=== PATIENT | female | born 1960 | race Caucasian/White ===

== ENCOUNTER 2016-09-15 02:03 | Observation (INO) | payer BC ==
[~2016-09-15] VITALS: Ht 160 cm; Wt 60.0 kg
[~2016-09-15 02:03] MED LIST: ADV25050 INH; AZIT250T6 PO; ESTR1TAB23 PO; FLORANEX PO; LEVO137T26 PO; PANT40TA3 PO; PRED20TA PO; RTATR NEB; RTPRO5 NEB; SULF500T5 PO
[2016-09-15] MEDS ORDERED: ONDANSETRON 4 MG INJ IV STA (02:32)
[2016-09-15] MEDS ORDERED: HYDROmorphONE 1 MG/ML SYG IV STA (02:32)
[2016-09-15] MEDS ORDERED: SOD CHLORIDE 0.9% 1,000 ML IV STA (02:32)
[2016-09-15 02:55] LABS: ADD SCAN DIFF NO
[2016-09-15 02:58] LABS: ABNORMAL IP MESSAGE 1; BASOPHILS % 0.5 % (0.0-2.0); EOSINOPHILS # 0.2 10^3/ul (0.0-0.5); EOSINOPHILS % 2.8 % (0.0-7.0); HEMATOCRIT 38.8 % (37.0-47.0); HEMOGLOBIN 12.6 g/dl (12.0-16.0); LYMPHOCYTES # 1.9 10^3/ul (0.8-2.9); LYMPHOCYTES % 23.4 % (15.0-51.0); MEAN CORPUSCULAR HEMOGLOBIN 30.7 pg (29.0-33.0); MEAN CORPUSCULAR HGB CONC 32.5 g/dl (32.0-37.0); MEAN CORPUSCULAR VOLUME 94.4 fl (82.0-101.0); MEAN PLATELET VOLUME 13.4 fl (7.4-10.4); MONOCYTE # 0.9 10^3/ul (0.3-0.9); MONOCYTES % 10.8 % (0.0-11.0); NEUTROPHIL # 4.9 10^3/ul (1.6-7.5); NEUTROPHILS % 62.2 % (39.0-77.0); PLATELET COUNT 227 10^3/UL (140-415); RED BLOOD COUNT 4.11 10^6/ul (4.20-5.40); RED CELL DISTRIBUTION WIDTH 13.6 % (11.5-14.5); WHITE BLOOD COUNT 7.9 10^3/ul (4.8-10.8)
[2016-09-15] MEDS ORDERED: PROCHLORPERAZINE 10 MG INJ IV ONE (03:00)
[2016-09-15 03:16] LABS: ALBUMIN 4.6 g/dl (3.3-4.9); ALBUMIN/GLOBULIN RATIO 1.84; BILIRUBIN,INDIRECT 0.4 mg/dl (0-1.1); BILIRUBIN,TOTAL 0.4 mg/dl (0.2-1.3); CALCIUM 8.9 mg/dl (8.4-10.2); CREATININE 0.88 mg/dl (0.44-1.00); POTASSIUM 3.3 mmol/L (3.5-5.1); TOTAL PROTEIN 7.1 g/dl (6.1-8.1)
[2016-09-15 03:53] LABS: URINE BLOOD (Dip) POC Trace-intact (NEGATIVE)
[2016-09-15 04:21] LABS: ADD UMIC YES; UR BILIRUBIN (Dip) NEGATIVE (NEGATIVE); UR BLOOD (Dip) NEGATIVE (NEGATIVE); UR CLARITY CLEAR (CLEAR); UR COLOR LT. YELLOW (YELLOW); UR GLUCOSE (Dip) NEGATIVE (NEGATIVE); UR KETONES (Dip) TRACE (NEGATIVE); UR LEUKOCYTE ESTERASE (Dip) TRACE (NEGATIVE); UR NITRITE (Dip) NEGATIVE (NEGATIVE); UR TOTAL PROTEIN (Dip) NEGATIVE (NEGATIVE); UR UROBILINOGEN (Dip) 0.2 E.U./dL (0.1-1.0)
[2016-09-15 04:42] LABS: UR BACTERIA MANY; UR SQUAMOUS EPITHELIAL CELL FEW; URINE RBCS 0-2 /HPF (0)
--- NOTE | 2016-09-15 05:32 | ERA ---
ER Documentation Chief Complaint Date/Time DATE: 09/15/16 TIME: 05:31 Chief Complaint N/V/D since Wednesday with blood in stool, Hx of colitis HPI This 48-year-old female nausea vomiting diarrhea since Wednesday of blood in her stool. Patient has history of colitis. 2 episodes of vomiting ablated 5 episodes of diarrhea but just blood streaks in them. No fevers no chills. No other current complaints with abdominal pain is colicky nature no exacerbating or relieving factors mild nonlocalizing mild intensity. ROS All systems reviewed and are negative except as per history of present illness. Medications Home Meds Active Scripts Azithromycin* (Azithromycin*) 250 Mg Tablet, 500 MG PO ONCE, #1 TAB Prov:ESDRAS PAL 05/25/15 Azithromycin* (Azithromycin*) 250 Mg Tablet, 250 MG PO DAILY, #4 TAB Prov:ESDRAS PAL 05/25/15 Salmeterol Xinaf/Fluticasone* (Advair*) 1 Inh Inha, 1 INH INH BID for 30 Days, 3 Refills Prov:ESDARS PAL 05/25/15 Prednisone (Prednisone) 20 Mg Tab, 40 MG PO DAILY for 14 Days, TAB Prov:ESDRAS PAL 05/25/15 Lactobacillus Acidoph/Bulgaricus* (Floranex*) 1 Tab Chew, 1 TAB PO BID for 30 Days, TAB Prov:ESDRAS PAL 05/25/15 Albuterol Sulfate* (Proventil* Neb) 2.5 Mg/0.5 Ml Nebu, 2.5 MG NEB Q8 for 30 Days Prov:ESDRAS PAL 05/25/15 Ipratropium Bryant* (Atrovent*) 0.5 Mg/2.5 Ml Nebu, 0.5 MG NEB Q8 for 30 Days Prov:ESDRAS PAL 05/25/15 Reported Medications Sulfasalazine* (Sulfazine*) 500 Mg Tablet, 1500 MG PO DAILY, TAB 05/24/15 Levothyroxine Sodium* (Levoxyl*) 137 Mcg Tablet, 137.5 MCG PO BEFORE BREAKFAST, #30 TAB 05/24/15 Pantoprazole* (Protonix*) 40 Mg Tablet.dr, 40 MG PO DAILY, TAB 10/10/14 Estradiol* (Estrace*) 1 Mg Tablet, 1 MG PO DAILY, TAB 02/15/14 Allergies Allergies: Coded Allergies: Penicillins (Verified Allergy, Severe, VOMITING, DIFFICULTY BREATHING, ) morphine (Verified Allergy, Mild, ITCHING, RASHES, 05/24/15) PMhx/Soc History of Surgery: Yes (thyroid surgery,hysterrectomy x20yrs ago; cholecystectomy) Anesthesia Reaction: No Hx Neurological Disorder: No Hx Respiratory Disorders: Yes (pneumonia) Hx Cardiac Disorders: Yes (high cholesterol) Hx Psychiatric Problems: Yes (depression) Hx Miscellaneous Medical Probl: Yes (fibromyalgia, colitis, chester) Hx Alcohol Use: Yes (28 yrs sober) Hx Substance Use: No Hx Tobacco Use: Yes (1 pack per day x 40 yrs) Smoking Status: Current every day smoker Physical Exam Vitals Vital Signs Date Time Temp Pulse Resp B/P Pulse Ox O2 Delivery O2 Flow Rate FiO2 09/15/16 04:00 78 18 147/62 97 09/15/16 03:10 78 18 131/44 97 Room Air 09/15/16 02:08 98.0 86 16 153/83 99 Physical Exam Const: [] Head: Atraumatic Eyes: Normal Conjunctiva ENT: Normal External Ears, Nose and Mouth. Neck: Full range of motion..~ No meningismus. Resp: Clear to auscultation bilaterally Cardio: Regular rate and rhythm, no murmurs Abd: Soft, non tender, non distended. Normal bowel sounds Skin: No petechiae or rashes Back: No midline or flank tenderness Ext: No cyanosis, or edema Neur: Awake and alert Psych: Normal Mood and Affect Result Diagram: 09/15/16 0235 09/15/16 0235 Results 24 hrs Laboratory Tests Test 09/15/16 02:35 09/15/16 03:45 09/15/16 03:55 White Blood Count 7.910^3/ul Red Blood Count 4.1110^6/ul Hemoglobin 12.6g/dl Hematocrit 38.8% Mean Corpuscular Volume 94.4fl Mean Corpuscular Hemoglobin 30.7pg Mean Corpuscular Hemoglobin Concent 32.5g/dl Red Cell Distribution Width 13.6% Platelet Count 77651^3/UL Mean Platelet Volume 13.4fl Neutrophils % 62.2% Lymphocytes % 23.4% Monocytes % 10.8% Eosinophils % 2.8% Basophils % 0.5% Nucleated Red Blood Cells % 0.0/100WBC Neutrophils # 4.910^3/ul Lymphocytes # 1.910^3/ul Monocytes # 0.910^3/ul Eosinophils # 0.210^3/ul Basophils # 0.010^3/ul Nucleated Red Blood Cells # 0.010^3/ul Sodium Level 143mmol/L Potassium Level 3.3mmol/L Chloride Level 109mmol/L Carbon Dioxide Level 25mmol/L Anion Gap 12 Blood Urea Nitrogen 5mg/dl Creatinine 0.88mg/dl Glucose Level 92mg/dl Calcium Level 8.9mg/dl Total Bilirubin 0.4mg/dl Direct Bilirubin 0.00mg/dl Indirect Bilirubin 0.4mg/dl Aspartate Amino Transf (AST/SGOT) 28IU/L Alanine Aminotransferase (ALT/SGPT) 35IU/L Alkaline Phosphatase 80IU/L Total Protein 7.1g/dl Albumin 4.6g/dl Globulin 2.50g/dl Albumin/Globulin Ratio 1.84 Lipase 63U/L Urine Color LT. YELLOW Urine Clarity CLEAR Urine pH 6.0 Urine Specific [place] <=1.005 Urine Ketones TRACE Urine Nitrite NEGATIVE Urine Bilirubin NEGATIVE Urine Urobilinogen 0.2 E.U./dL Urine Leukocyte Esterase TRACE Urine Microscopic RBC 0-2/HPF Urine Microscopic WBC 2-5/HPF Urine Squamous Epithelial Cells FEW Urine Bacteria MANY Urine Hemoglobin NEGATIVE Urine Glucose NEGATIVE% Urine Total Protein NEGATIVE Bedside Urine pH (LAB) 6.0 Bedside Urine Protein (LAB) Negative Bedside Urine Glucose (UA) Negative Bedside Urine Ketones (LAB) 1+ Bedside Urine Blood Trace-intact Bedside Urine Nitrite (LAB) Negative Bedside Urine Leukocyte Esterase (L Negative Current Medications Medications (Trade) Dose Ordered Sig/Madi Route PRN Reason Start Time Stop Time Status Last Admin Dose Admin Sodium Chloride (NS) 1,000 ml @ 1,000 mls/hr Q1H STAT IV 09/15/16 02:32 09/15/16 03:31 DC 09/15/16 02:45 Hydromorphone HCl (Dilaudid) 1 mg ONCE STAT IV 09/15/16 02:32 09/15/16 02:34 DC 09/15/16 02:45 Ondansetron HCl (Zofran Inj) 4 mg ONCE STAT IV 09/15/16 02:32 09/15/16 02:34 DC Prochlorperazine (Compazine Inj) 10 mg ONCE ONCE IV 09/15/16 03:00 09/15/16 03:01 DC 09/15/16 03:04 Procedures/MDM Medical decision-making: This very pleasant 48-year-old female as well as to be acute colitis flare. Patient will be admitted to the [facility] physician guest relation officer. Departure Diagnosis: Primary Impression: Abdominal pain Qualified Code: R10.84 - Generalized abdominal pain Additional Impression: Colitis MARIA ELENA FAM Sep 15, 2016 05:32
[2016-09-15] MEDS ORDERED: ACETAMINOPHEN 325 MG TAB PO PRN ×2 (06:30→08:00)
[2016-09-15] MEDS ORDERED: ONDANSETRON 4 MG INJ IV PRN ×2 (06:30→08:00)
[2016-09-15] MEDS ORDERED: predniSONE 20 MG TAB PO SCH (08:00)
[2016-09-15] MEDS ORDERED: HYDROmorphONE 1 MG/ML SYG IV PRN (08:00)
[2016-09-15] MEDS ORDERED: ALBUTEROL/IPRATROPIUM (NEB) 3 ML AMP HHN SCH (08:00)
[2016-09-15] MEDS ORDERED: ALBUTEROL 0.083% (NEB) 2.5 MG/3 ML AMP HHN PRN (08:00)
[2016-09-15 08:05] VITALS: PULSE 72
[2016-09-15 08:21] VITALS: BP 136/73; RESP 20
[2016-09-15 08:55] VITALS: Ht 160 cm; Wt 60.0 kg
[2016-09-15] MEDS ORDERED: PANTOPRAZOLE (EC) 40 MG TAB PO SCH (09:00)
[2016-09-15] MEDS ORDERED: SALMETEROL/FLUTICASONE 250/50 INHA INH SCH (09:00)
[2016-09-15] MEDS ORDERED: LEVOTHYROXINE 137 MCG TAB PO SCH (09:00)
[2016-09-15] MEDS ORDERED: SULFASALAZINE 500 MG TAB PO SCH (09:00)
[2016-09-15] MEDS ORDERED: POTASSIUM CHLORIDE 250 ML IVPB ONE (09:00)
[2016-09-15] MEDS ORDERED: SOD CHLORIDE 0.9% 1,000 ML IV SCH (09:00)
[2016-09-15] MEDS ORDERED: NICOTINE (21 MG/24 HR) PATCH TRANSDERM SCH (12:30)
[2016-09-15] MEDS ORDERED: METR500T PO (14:10)
[2016-09-15] MEDS ORDERED: CIPR500T4 PO (14:10)
--- NOTE | 2016-09-15 18:21 | HP ---
DATE OF ADMISSION: 09/15/2016 Of note, the patient left against medical advice before being seen by anybody from the internal medi cine team. CHIEF COMPLAINT ON ADMISSION: Abdominal pain. HISTORY OF PRESENT ILLNESS: This history is obtained from ER physician's documentation. The patien britt is a 48-year-old female with history of ulcerative colitis who presented with nausea, vomiting and diarrhea for the past 3 days. She even reported blood in her stools. She had 2 episodes of vomiti ng and apparently 5 episodes of diarrhea with some blood seen. No fevers, no chills. No other comp laints besides the complaint of abdominal pain. The patient was seen by ER physician. Labs were do ne. After reviewing her labs, started on antiemetics and IV fluids. After discussion with Dr. [place] self who was covering for [facility], the patient was admitted to a medical/surgical bed. While on the floor, I did receive a call from the nurse regarding the patient requesting compazine IV. We cannot do Compazine IV inpatient, especially on the medical floor. This was explained to th e patient, she was offered Zofran. The patient refused Zofran and walked out against medical advice . REVIEW OF SYSTEMS: Unable to obtain. ALLERGIES: 1. PENICILLIN. 2. MORPHINE. PAST MEDICAL HISTORY: 1. Ulcerative colitis. 2. Hypothyroidism. 3. Chronic obstructive pulmonary disease. 4. Tobacco use. 5. Fibromyalgia. 6. Major depressive disorder. PAST SURGICAL HISTORY: 1. Status post hysterectomy remotely. 2. Status post thyroidectomy for papillary carcinoma remotely. 3. Status post cholecystectomy in 2013. SOCIAL HISTORY: The patient denies alcohol use. She does still smoke 1 pack a day and was requesti ng a nicotine patch, which was also provided. REVIEW OF SYSTEMS: Again, unable to obtain. OUTPATIENT MEDICATIONS: 1. Azithromycin 250 mg p.o. daily. 2. Azulfidine 500 mg p.o. daily. 3. Proventil nebulizer 2.5 mg q.8h. 4. Atrovent 2.5 mg nebulizer q.8h. 5. Advair 1 puff inhaled twice daily. 6. Floranex 1 tab p.o. b.i.d. 7. Protonix 40 mg p.o. daily. 8. Estrace 1 mg p.o. daily. 9. Levoxine 137.5 mcg daily. 10. Prednisone 40 mg p.o. daily. PHYSICAL EXAMINATION: Unable to perform as the patient left against medical advice. LABORATORY DATA: White blood cell count 7.9, hemoglobin 12.6, hematocrit 38.8, platelet count of 22 7. Chemistry with a sodium of 143, potassium 3.3, chloride 109, bicarbonate 25, BUN 5, creatinine 0 .88, glucose of 92. LFTs within normal. Lipase of 63, urinalysis was grossly negative. No imaging was obtained. ASSESSMENT AND PLAN: This is a 56-year-old female with reported nausea, vomiting, abdominal pain th at was suspicious for ulcerative colitis flare. The patient was started on appropriate medications by Dr. Roldan who is covering overnight; however, she left against medical advice prior for furth er evaluation and also formal admission and formal history and physical. 1. Chronic obstructive pulmonary disease, her medications were resumed on admission. 2. Hypothyroidism medication resumed on admission. DISPOSITION: The patient left against medical advice. Dictated By: ESDRAS GEORGE/DERRICK Conf#: [id number] DID#: [id number]
== END 2016-09-15 12:22 | disposition left against medical advice (07) ==
LOC: E/R 02:03 → INTOOBSV 06:19 → UNDOADMOB 06:19 → MS2 06:19 → UNDOADMOB 07:45 → UNDODISOB 12:22
PROVIDERS: ADMIT Legal Medicine; ATTEND Legal Medicine
DX: R10.9 Unspecified abdominal pain (principal); R11.2 Nausea with vomiting, unspecified; E03.9 Hypothyroidism, unspecified; J44.9 Chronic obstructive pulmonary disease, unspecified; F32.9 Major depressive disorder, single episode, unspecified; Z88.0 Allergy status to penicillin; Z88.5 Allergy status to narcotic agent; Z90.49 Acquired absence of other specified parts of digestive tract; Z90.710 Acquired absence of both cervix and uterus; Z87.01 Personal history of pneumonia (recurrent); E78.00 Pure hypercholesterolemia, unspecified; Z87.19 Personal history of other diseases of the digestive system
CPT/HCPCS: 36415; 80053; 81001; 83690; 85025; 96374; 96375; 99285; G0378; J0780; J1170; J2405; J3480; J7030; 81003; 99217

== ENCOUNTER 2016-09-15 13:15 | Emergency (ER) | payer BC ==
[~2016-09-15] VITALS: Ht 157.5 cm; Wt 78.0 kg
[2016-09-15 13:18] VITALS: Ht 157.5 cm; Wt 78.0 kg
[2016-09-15] MEDS ORDERED: CIPR500T4 PO (14:10)
[2016-09-15] MEDS ORDERED: METR500T PO (14:10)
--- NOTE | 2016-09-15 16:53 | ERD ---
ER Documentation Chief Complaint Date/Time DATE: 09/15/16 TIME: 16:51 Chief Complaint ADMITTED TODAY,AMA TODAY FROM 616B, HAS AP HPI Patient is a 56-year-old female with lupus and colitis who presents with abdominal pain. The patient was admitted this morning for colitis but left AGAINST MEDICAL ADVICE. She said that she has for a Compazine and nicotine patch and when she was not given that she left. She has complained of abdominal pain since Wednesday. She said that she has rectal bleeding as well. She has vomiting and diarrhea. She says that her primary doctor is Dr. Epi Alejandro. ROS All systems reviewed and are negative except as per history of present illness. Medications Home Meds Active Scripts Metronidazole* (Flagyl*) 500 Mg Tablet, 500 MG PO TID for 7 Days, TAB Prov:LUPE SUAREZ MD 09/15/16 Ciprofloxacin Hcl* (Ciprofloxacin Hcl*) 500 Mg Tablet, 500 MG PO BID for 7 Days , TAB Prov:LUPE SUAREZ MD 09/15/16 Azithromycin* (Azithromycin*) 250 Mg Tablet, 500 MG PO ONCE, #1 TAB Prov:ESDRAS PAL 05/25/15 Azithromycin* (Azithromycin*) 250 Mg Tablet, 250 MG PO DAILY, #4 TAB Prov:ESDRAS PAL 05/25/15 Salmeterol Xinaf/Fluticasone* (Advair*) 1 Inh Inha, 1 INH INH BID for 30 Days, 3 Refills Prov:ESDRAS PAL 05/25/15 Prednisone (Prednisone) 20 Mg Tab, 40 MG PO DAILY for 14 Days, TAB Prov:ESDRAS PAL 05/25/15 Lactobacillus Acidoph/Bulgaricus* (Floranex*) 1 Tab Chew, 1 TAB PO BID for 30 Days, TAB Prov:ESDRAS PAL 05/25/15 Albuterol Sulfate* (Proventil* Neb) 2.5 Mg/0.5 Ml Nebu, 2.5 MG NEB Q8 for 30 Days Prov:ESDRAS PAL 05/25/15 Ipratropium Dema* (Atrovent*) 0.5 Mg/2.5 Ml Nebu, 0.5 MG NEB Q8 for 30 Days Prov:ESDRAS PAL 05/25/15 Reported Medications Sulfasalazine* (Sulfazine*) 500 Mg Tablet, 500 MG PO DAILY, TAB 05/24/15 Levothyroxine Sodium* (Levoxyl*) 137 Mcg Tablet, 137.5 MCG PO BEFORE BREAKFAST, #30 TAB 05/24/15 Pantoprazole* (Protonix*) 40 Mg Tablet.dr, 40 MG PO DAILY, TAB 10/10/14 Estradiol* (Estrace*) 1 Mg Tablet, 1 MG PO DAILY, TAB 02/15/14 Allergies Allergies: Coded Allergies: Penicillins (Verified Allergy, Severe, VOMITING, DIFFICULTY BREATHING, ) morphine (Verified Allergy, Mild, ITCHING, RASHES, 05/24/15) PMhx/Soc History of Surgery: Yes (GALL STONES REMOVAL, THYROIDECTOMY,HYSTERECTOMY) Anesthesia Reaction: No Hx Neurological Disorder: No Hx Respiratory Disorders: No Hx Cardiac Disorders: No Hx Psychiatric Problems: No Hx Miscellaneous Medical Probl: Yes (LUPUS 2001) Hx Alcohol Use: No Hx Substance Use: No Hx Tobacco Use: Yes Smoking Status: Current every day smoker FmHx Family History: No diabetes Physical Exam Vitals Vital Signs Date Time Temp Pulse Resp B/P Pulse Ox O2 Delivery O2 Flow Rate FiO2 09/15/16 13:18 98.2 93 18 133/63 99 Physical Exam Const: Anxious Head: Atraumatic Eyes: Normal Conjunctiva ENT: Normal External Ears, Nose and Mouth. Neck: Full range of motion..~ No meningismus. Resp: Clear to auscultation bilaterally Cardio: Regular rate and rhythm, no murmurs Abd: Soft, diffuse tenderness to palpation without rebound or guarding Skin: No petechiae or rashes Back: No midline or flank tenderness Ext: No cyanosis, or edema Neur: Awake and alert Psych: Normal Mood and Affect Procedures/MDM Smoking Cessation Therapy: Pt. was lectured for greater than 3 minutes on the health risks of continued smoking and the benefits of cessation. Patient is a 56-year-old female who presents with colitis. I spoke with Dr. Pal who is the [place] doctor stone polisher machine. She says that she does not want to admit the patient again as when she told the patient that she could not get Compazine IV as it did not give out on the floor the patient got up and left. She has been to discharge the patient with p.o. antibiotics. I will discharge the patient with Cipro and Flagyl and she can follow-up with her primary doctor as well as Dr. Padilla her GI doctor within 24-48 hours. She can return sooner for any worsening symptoms. At this point I doubt bowel obstruction or sepsis. Departure Diagnosis: Primary Impression: Colitis Additional Impression: Abdominal pain Abdominal location: generalized Qualified Code: R10.84 - Generalized abdominal pain Condition: Fair Patient Instructions: Abdominal Pain, What Is Ulcerative Colitis? Referrals: FERNANDO THOMAS MD Additional Instructions: SPECIALIST: YOU HAVE A MEDICAL CONDITION WHICH REQUIRES YOU TO SEE A SPECIALIST WITHIN THE NEXT 1-2 DAYS. PLEASE FOLLOW UP WITH YOUR PRIMARY PHYSICIAN FOR REFFERAL.IF YOU DO NOT HAVE A PRIMARY CARE PHYSICIAN AND/OR YOU CAN NOT AFFORD TO SEE A PHYSICIAN THE FOLLOWING RESOURCES HAVE BEEN SUPPLIED TO YOU. IT IS YOUR RESPONSIBILITY TO BE SEEN BY THE SPECIALIST LUPE SUAREZ MD Sep 15, 2016 16:53
== END 2016-09-15 14:22 | disposition home or self-care (01) ==
LOC: E/R 13:15
DX: K52.9 Noninfective gastroenteritis and colitis, unspecified (principal); R10.84 Generalized abdominal pain; F17.210 Nicotine dependence, cigarettes, uncomplicated
CPT/HCPCS: 99284